=== PATIENT | male | born 1950 | race Caucasian/White ===

== ENCOUNTER 2018-11-01 12:23 | Emergency (ER) | payer BC, MEDICARE, OTHER ==
[2018-11-01] MEDS ORDERED: Acetaminophen TAB* 325 MG PO ONE (14:49)
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
[2018-11-01 17:43] VITALS: BP 142/79
== END 2018-11-01 17:41 | disposition home or self-care (01) ==
LOC: ED 12:23
DX: S39.012A Strain of muscle, fascia and tendon of lower back, initial encounter (principal); S20.219A Contusion of unspecified front wall of thorax, initial encounter; S09.90XA Unspecified injury of head, initial encounter; V18.0XXA Pedal cycle driver injured in noncollision transport accident in nontraffic accident, initial encounter; Y93.55 Activity, bike riding; Y92.828 Other wilderness area as the place of occurrence of the external cause; M51.34 Other intervertebral disc degeneration, thoracic region; M51.37 Other intervertebral disc degeneration, lumbosacral region; M50.30 Other cervical disc degeneration, unspecified cervical region
CPT/HCPCS: 70450; 72070; 72100; 72125; 99282; A9270-GY